=== PATIENT | female | born 1960 | race Caucasian/White ===

== ENCOUNTER → 2016-11-10 | Outpatient (CLI) | payer MEDICARE, OTHER ==
[~2016-11-10] MED LIST: ALDACTAZIDE 251 TAB PO; AUGMENTIN 875875 MG PO; BP MED; CLARITIN10 MG PO; FLONASE 0.05% 121 EA NAS; FLONASE0.05 MG/AC NS; NEXIUM40 MG PO; OPANA ER20 MG PO; OXYCONTIN40 M1 PO; PAROXETINE HCL40 MG PO; PERCOCET 650 MG1 TA1 PO; PRAVASTATIN SOD20 MG PO; PREDNICOT20 MG PO; ROBAXIN750 MG PO; ROBITUSSIN AC 110 ML PO; VICODIN ES 7501 TAB PO; XANAX1 MG PO; ZITHROMAX Z PA250 MG PO; ZOCOR40 MG PO
[2016-11-10 12:19] LABS: HEMOGLOBIN A1c 5.9 % (4.8-5.6)
[2016-11-10 12:32] LABS: ALKALINE PHOSPHATASE 125 U/L (45-117); BILIRUBIN, DIRECT < 0.1 mg/dL (0.0-0.2); BILIRUBIN, TOTAL 0.5 mg/dl (0.2-1.0); BUN 6 mg/dl (7-24); CARBON DIOXIDE 27 mmol/L (21-32); CHLORIDE 103 mmol/L (98-107); CHOLESTEROL 250 mg/dL (<200); EST GLOM FILT AFRICAN AMERICAN > 60 ml/min; FREE T4 0.94 ng/dl (0.76-1.46); GLUCOSE 107 mg/dL (65-99); HDL CHOLESTEROL 88 mg/dl (40-60); LDL CHOLESTEROL 120 mg/dL (9-159); SGOT/AST 19 IU/L (3-35); SGPT/ALT 26 U/L (12-78); SODIUM 139 mmol/L (136-145); TOTAL PROTEIN 7.8 gm/dL (6.4-8.2); TRIGLYCERIDES 209 mg/dl (<150); VLDL CHOLESTEROL 42 mg/dL (6-40)
== END | disposition home or self-care (01) ==
LOC: LAB 11:10
PROVIDERS: Internal Medicine
DX: E78.4 Other hyperlipidemia (principal); B37.2 Candidiasis of skin and nail; I10 Essential (primary) hypertension; R73.03 Prediabetes; L98.9 Disorder of the skin and subcutaneous tissue, unspecified; Z79.1 Long term (current) use of non-steroidal anti-inflammatories (NSAID); Z79.899 Other long term (current) drug therapy

== ENCOUNTER 2016-12-12 19:05 | Emergency (ER) | payer MEDICARE, OTHER ==
[~2016-12-12] VITALS: Wt 72.6 kg
[2016-12-12 19:12] VITALS: BP 149/67
[2016-12-12] MEDS ORDERED: PREDNISONE10 MG PO (19:48)
== END 2016-12-12 19:52 | disposition home or self-care (01) ==
LOC: ED 19:05
DX: M72.2 Plantar fascial fibromatosis (principal); R03.0 Elevated blood-pressure reading, without diagnosis of hypertension

== ENCOUNTER → 2017-10-14 | Outpatient (CLI) | payer MEDICARE, OTHER ==
[~2017-10-14] MED LIST changes: +PREDNISONE10 MG PO
== END | disposition home or self-care (01) ==
LOC: MRI 12:44
DX: M47.892 Other spondylosis, cervical region (principal); M47.897 Other spondylosis, lumbosacral region; M51.27 Other intervertebral disc displacement, lumbosacral region; M77.8 Other enthesopathies, not elsewhere classified; M48.02 Spinal stenosis, cervical region; M48.03 Spinal stenosis, cervicothoracic region; Z85.038 Personal history of other malignant neoplasm of large intestine

== ENCOUNTER → 2018-04-04 | Outpatient (CLI) | payer MEDICARE, OTHER ==
[2018-04-04 09:53] LABS: HEMATOCRIT 42.4 % (37.0-47.0); HEMOGLOBIN 13.7 g/dl (12.0-16.0); MEAN CELL VOLUME 89.8 fl (81.0-99.0); MEAN CORPUSCULAR HGB CONC 32.3 g/dl (33.0-37.0); MEAN PLATELET VOLUME 9.4 fl (9.6-12.3); RED BLOOD COUNT 4.72 10*6/uL (4.10-5.10); RED CELL DISTRI WIDTH 12.7 % (0-14.5); WHITE BLOOD COUNT 4.7 10*3/uL (4.8-10.8)
[2018-04-04 10:11] LABS: ALBUMIN 3.9 gm/dl (3.1-4.5); ALKALINE PHOSPHATASE 97 U/L (45-117); BUN 7 mg/dl (7-24); CHLORIDE 100 mmol/L (98-107); CHOLESTEROL 271 mg/dL (<200); CREATININE 0.78 mg/dL (0.55-1.02); HDL CHOLESTEROL 66 mg/dl (40-60); LDL CHOLESTEROL 152 mg/dL (9-159); POTASSIUM 4.8 mmol/L (3.5-5.1); SGOT/AST 23 IU/L (3-35); SGPT/ALT 25 U/L (12-78); SODIUM 134 mmol/L (136-145); TOTAL PROTEIN 7.4 gm/dL (6.4-8.2); TRIGLYCERIDES 267 mg/dl (<150); VLDL CHOLESTEROL 53 mg/dL (6-40)
== END | disposition home or self-care (01) ==
LOC: LAB 09:03
PROVIDERS: Registered Nurse Flight
DX: I10 Essential (primary) hypertension (principal); E78.00 Pure hypercholesterolemia, unspecified; E55.9 Vitamin D deficiency, unspecified; R73.01 Impaired fasting glucose

== ENCOUNTER → 2018-08-21 | Outpatient (CLI) | payer MEDICARE, OTHER ==
[2018-08-21 12:36] LABS: ALBUMIN 3.5 gm/dl (3.1-4.5); ALKALINE PHOSPHATASE 97 U/L (45-117); BUN 8 mg/dl (7-24); CHLORIDE 104 mmol/L (98-107); CHOLESTEROL 280 mg/dL (<200); CREATININE 0.83 mg/dL (0.55-1.02); HDL CHOLESTEROL 74 mg/dl (40-60); LDL CHOLESTEROL 145 mg/dL (9-159); POTASSIUM 4.3 mmol/L (3.5-5.1); SGOT/AST 13 IU/L (3-35); SGPT/ALT 21 U/L (12-78); SODIUM 139 mmol/L (136-145); TOTAL PROTEIN 7.1 gm/dL (6.4-8.2); TRIGLYCERIDES 304 mg/dl (<150); VLDL CHOLESTEROL 61 mg/dL (6-40)
== END | disposition home or self-care (01) ==
LOC: LAB 11:26
PROVIDERS: Registered Nurse Flight
DX: E78.00 Pure hypercholesterolemia, unspecified (principal); E55.9 Vitamin D deficiency, unspecified

== ENCOUNTER 2019-03-25 13:56 | Emergency (ER) | payer OTHER, MEDICARE ==
[~2019-03-25] VITALS: Wt 68.9 kg
[2019-03-25 13:57] VITALS: BP 136/90
== END 2019-03-25 15:43 | disposition home or self-care (01) ==
LOC: ED 13:56
DX: M79.602 Pain in left arm (principal); M79.89 Other specified soft tissue disorders; M54.2 Cervicalgia; E78.00 Pure hypercholesterolemia, unspecified; G89.29 Other chronic pain; I10 Essential (primary) hypertension; M81.0 Age-related osteoporosis without current pathological fracture; Z79.899 Other long term (current) drug therapy

== ENCOUNTER → 2019-04-20 | Outpatient (CLI) | payer OTHER, MEDICARE | END | disposition home or self-care (01) | LOC: RAD 09:37 | DX: J44.9 Chronic obstructive pulmonary disease, unspecified (principal) ==

== ENCOUNTER → 2019-07-20 | Outpatient (CLI) | payer OTHER ==
[2019-07-20 09:53] LABS: BASO # 0.1 10*3/uL (0.0-0.1); BASO % 1.3 % (0.0-1.0); EOS # 0.1 10*3/uL (0.0-0.4); EOS % 1.5 % (1.0-4.0); HEMATOCRIT 44.3 % (37.0-47.0); HEMOGLOBIN 14.1 g/dl (12.0-16.0); LYMPH # 1.2 10*3/uL (1.3-4.4); MEAN CELL VOLUME 87.9 fl (81.0-99.0); MEAN CORPUSCULAR HGB CONC 31.8 g/dl (33.0-37.0); MEAN PLATELET VOLUME 10.1 fl (9.6-12.3); MONO # 0.3 10*3/uL (0.1-1.0); MONO % 4.9 % (3.0-9.0); NEUT # 3.7 10*3/uL (2.3-7.9); NEUT % 68.7 % (47.0-73.0); PLATELET COUNT AUTOMATED 395 10*3/uL (130-400); RED BLOOD COUNT 5.04 10*6/uL (4.10-5.10); RED CELL DISTRI WIDTH 13.8 % (0-14.5); WHITE BLOOD COUNT 5.3 10*3/uL (4.8-10.8)
[2019-07-20 10:11] LABS: BILIRUBIN NEGATIVE (NEGATIVE); BLOOD TRACE-INTACT (NEGATIVE); CLARITY SL CLOUDY (CLEAR); COLOR YELLOW (YELLOW); GLUCOSE NEGATIVE (NEGATIVE); KETONE NEGATIVE (NEGATIVE); LEUKO ESTERASE NEGATIVE (NEGATIVE); NITRITE NEGATIVE (NEGATIVE); UROBILINOGEN 0.2 E.U./dl (0.2-1.0)
[2019-07-20 10:30] LABS: CHLORIDE 110 mmol/L (98-107); POTASSIUM 4.4 mmol/L (3.5-5.1); SODIUM 143 mmol/L (136-145)
[2019-07-20 10:38] LABS: ALBUMIN 3.8 gm/dl (3.1-4.5); ALKALINE PHOSPHATASE 77 U/L (45-117); BACTERIA TRACE; BUN 9 mg/dl (7-24); CHOLESTEROL 189 mg/dL (<200); CREATININE 1.09 mg/dL (0.55-1.02); HDL CHOLESTEROL 122 mg/dl (40-60); LDL CHOLESTEROL 53 mg/dL (9-159); MUCOUS TRACE; SGOT/AST 10 IU/L (3-35); SGPT/ALT 21 U/L (12-78); TOTAL PROTEIN 7.1 gm/dL (6.4-8.2); TRIGLYCERIDES 71 mg/dl (<150); VLDL CHOLESTEROL 14 mg/dL (6-40)
== END | disposition home or self-care (01) ==
LOC: LAB 09:17
PROVIDERS: Registered Nurse Flight
DX: R73.01 Impaired fasting glucose (principal); E78.00 Pure hypercholesterolemia, unspecified; R10.31 Right lower quadrant pain

== ENCOUNTER → 2019-08-14 | Outpatient (CLI) | payer OTHER ==
[2019-08-14 08:42] LABS: CREATININE 1.03 mg/dL (0.55-1.02)
== END | disposition home or self-care (01) ==
LOC: LAB 07:37 → CT 08:00
PROVIDERS: Registered Nurse Flight
DX: R10.13 Epigastric pain (principal); K44.9 Diaphragmatic hernia without obstruction or gangrene; N28.1 Cyst of kidney, acquired

== ENCOUNTER → 2020-01-23 | Outpatient (CLI) | payer OTHER | END | disposition home or self-care (01) | LOC: RAD 16:02 | PROVIDERS: ATTEND Registered Nurse Flight | DX: M25.512 Pain in left shoulder (principal) ==

== ENCOUNTER → 2020-02-20 | Outpatient (CLI) | payer OTHER ==
[2020-02-20 10:11] LABS: BASO # 0.1 10*3/uL (0.0-0.1); BASO % 1.2 % (0.0-1.0); EOS # 0.1 10*3/uL (0.0-0.4); EOS % 2.6 % (1.0-4.0); HEMATOCRIT 42.6 % (37.0-47.0); LYMPH # 1.2 10*3/uL (1.3-4.4); MEAN CELL VOLUME 89.1 fl (81.0-99.0); MEAN CORPUSCULAR HGB 28.2 pg (27.0-31.0); MEAN CORPUSCULAR HGB CONC 31.7 g/dl (33.0-37.0); MEAN PLATELET VOLUME 9.8 fl (9.6-12.3); MONO # 0.3 10*3/uL (0.1-1.0); MONO % 5.1 % (3.0-9.0); NEUT # 3.3 10*3/uL (2.3-7.9); NEUT % 66.7 % (47.0-73.0); PLATELET COUNT AUTOMATED 349 10*3/uL (130-400); RED BLOOD COUNT 4.78 10*6/uL (4.10-5.10); RED CELL DISTRI WIDTH 13.8 % (0-14.5); WHITE BLOOD COUNT 4.9 10*3/uL (4.8-10.8)
[2020-02-20 10:41] LABS: ALBUMIN 3.6 gm/dl (3.1-4.5); ALKALINE PHOSPHATASE 84 U/L (45-117); BUN 8 mg/dl (7-24); CHLORIDE 109 mmol/L (98-107); CHOLESTEROL 211 mg/dL (<200); HDL CHOLESTEROL 123 mg/dl (40-60); LDL CHOLESTEROL 74 mg/dL (9-159); POTASSIUM 4.2 mmol/L (3.5-5.1); SGOT/AST 18 IU/L (3-35); SGPT/ALT 29 U/L (12-78); SODIUM 141 mmol/L (136-145); TRIGLYCERIDES 69 mg/dl (<150); VLDL CHOLESTEROL 14 mg/dL (6-40)
[2020-02-21 17:06] LABS: BARBITURATE, URINE Negative ng/mL (Cutoff=200); CANNABINOID, URINE Negative ng/mL (Cutoff=20); CREATININE, UR 66.5 mg/dL (20.0-300.0); PH URINE 5.5 (4.5-8.9)
[2020-02-23 20:10] LABS: ALPRAZOLAM CONFIRM 580 ng/mL (Cutoff=100); FLURAZEPAM Negative (Cutoff=100)
== END | disposition home or self-care (01) ==
LOC: LAB 09:40
PROVIDERS: ATTEND Internal Medicine
DX: E78.5 Hyperlipidemia, unspecified (principal); M54.9 Dorsalgia, unspecified; F19.20 Other psychoactive substance dependence, uncomplicated

== ENCOUNTER → 2020-07-04 | Outpatient (CLI) | payer OTHER ==
[2020-07-04 11:22] LABS: BASO # 0.1 10*3/uL (0.0-0.1); EOS # 0.1 10*3/uL (0.0-0.4); EOS % 0.7 % (1.0-4.0); LYMPH # 1.7 10*3/uL (1.3-4.4); MEAN CELL VOLUME 84.3 fl (81.0-99.0); MEAN CORPUSCULAR HGB 27.3 pg (27.0-31.0); MEAN CORPUSCULAR HGB CONC 32.3 g/dl (33.0-37.0); MONO # 0.6 10*3/uL (0.1-1.0); MONO % 8.3 % (3.0-9.0); NEUT # 4.4 10*3/uL (2.3-7.9); NEUT % 64.7 % (47.0-73.0); PLATELET COUNT AUTOMATED 382 10*3/uL (130-400); RED CELL DISTRI WIDTH 12.9 % (0-14.5); WHITE BLOOD COUNT 6.8 10*3/uL (4.8-10.8)
[2020-07-04 11:47] LABS: ALBUMIN 3.8 gm/dl (3.1-4.5); CREATININE 1.48 mg/dL (0.55-1.02); POTASSIUM 3.8 mmol/L (3.5-5.1); TOTAL PROTEIN 7.3 gm/dL (6.4-8.2)
[2020-07-04 11:55] LABS: CEA 0.7 ng/mL; THYROID STIM HORMONE (HS) 0.721 uIU/ml (0.358-4.75)
== END | disposition home or self-care (01) ==
LOC: LAB 10:34
PROVIDERS: ATTEND Internal Medicine
DX: C18.9 Malignant neoplasm of colon, unspecified (principal); I10 Essential (primary) hypertension; E78.5 Hyperlipidemia, unspecified

== ENCOUNTER 2020-10-01 10:30 | Emergency (ER) | payer MEDICARE, OTHER ==
[~2020-10-01] VITALS: Ht 160 cm; Wt 68.0 kg
[2020-10-01 11:27] LABS: BASO # 0.1 10*3/uL (0.0-0.1); BASO % 1.4 % (0.0-1.0); EOS # 0.1 10*3/uL (0.0-0.4); EOS % 1.6 % (1.0-4.0); LYMPH # 1.1 10*3/uL (1.3-4.4); LYMPH % 26.2 % (27.0-41.0); MEAN CELL VOLUME 81.1 fl (81.0-99.0); MEAN CORPUSCULAR HGB 27.3 pg (27.0-31.0); MEAN CORPUSCULAR HGB CONC 33.6 g/dl (33.0-37.0); MEAN PLATELET VOLUME 9.1 fl (9.6-12.3); MONO # 0.4 10*3/uL (0.1-1.0); MONO % 8.9 % (3.0-9.0); NEUT # 2.6 10*3/uL (2.3-7.9); NEUT % 61.7 % (47.0-73.0); PLATELET COUNT AUTOMATED 397 10*3/uL (130-400); RED BLOOD COUNT 4.44 10*6/uL (4.10-5.10); RED CELL DISTRI WIDTH 13.4 % (0-14.5); WHITE BLOOD COUNT 4.3 10*3/uL (4.8-10.8)
[2020-10-01 11:41] LABS: ALBUMIN 3.7 gm/dl (3.1-4.5); ALKALINE PHOSPHATASE 70 U/L (45-117); BUN 20 mg/dl (7-24); CHLORIDE 99 mmol/L (98-107); CREATININE 1.43 mg/dL (0.55-1.02); LIPASE 76 U/L (73-393); POTASSIUM 4.2 mmol/L (3.5-5.1); SGOT/AST 11 IU/L (3-35); SGPT/ALT 16 U/L (12-78); SODIUM 132 mmol/L (136-145)
[2020-10-01 11:42] LABS: TROPONIN I < 0.015 ng/ml (<0.045)
[2020-10-01 11:54] LABS: BILIRUBIN Negative (Negative); BLOOD Negative (Negative); CLARITY Clear (Clear); COLOR Yellow (Yellow); GLUCOSE Negative (Negative); KETONE Negative (Negative); LEUKO ESTERASE Trace (Negative); NITRITE Negative (Negative); PH 6.5 (4.5-8.0); SPECIFIC GRAVITY <= 1.005 (1.001-1.030); UROBILINOGEN 0.2 E.U./dl (0.0-1.0)
[2020-10-01 12:00] LABS: BACTERIA TRACE; RBC 0-2 rbc/hpf (0-2)
[2020-10-01 14:48] VITALS: BP 121/74
== END 2020-10-01 15:47 | disposition left against medical advice (07) ==
LOC: ED 10:30
PROVIDERS: Emergency Medicine
DX: R06.00 Dyspnea, unspecified (principal); R42 Dizziness and giddiness; Z79.899 Other long term (current) drug therapy

== ENCOUNTER 2020-10-31 10:06 | Emergency (ER) | payer MEDICARE, OTHER ==
[~2020-10-31] VITALS: Wt 68.0 kg
[2020-10-31 14:01] VITALS: BP 136/50
== END 2020-10-31 18:35 | disposition home or self-care (01) ==
LOC: ED 10:06
DX: S92.341A Displaced fracture of fourth metatarsal bone, right foot, initial encounter for closed fracture (principal); S92.351A Displaced fracture of fifth metatarsal bone, right foot, initial encounter for closed fracture; X58.XXXA Exposure to other specified factors, initial encounter; Y93.89 Activity, other specified; Y92.89 Other specified places as the place of occurrence of the external cause; Y99.8 Other external cause status

== ENCOUNTER 2021-04-22 18:43 | Emergency (ER) | payer OTHER ==
[~2021-04-22] VITALS: Ht 157.4 cm; Wt 61.2 kg
[2021-04-22 18:59] VITALS: BP 133/56
== END 2021-04-22 22:45 | disposition left against medical advice (07) ==
LOC: ED 18:43
DX: R11.10 Vomiting, unspecified (principal); Z53.21 Procedure and treatment not carried out due to patient leaving prior to being seen by health care provider

== ENCOUNTER 2021-10-05 23:30 | Emergency (ER) | payer OTHER ==
[2021-10-05 23:48] VITALS: BP 113/49
== END 2021-10-06 01:49 | disposition home or self-care (01) ==
LOC: ED 23:30
DX: K22.2 Esophageal obstruction (principal); Z79.899 Other long term (current) drug therapy; Z98.890 Other specified postprocedural states; Z90.89 Acquired absence of other organs

== ENCOUNTER → 2021-10-21 | Outpatient (CLI) | payer OTHER | END | disposition home or self-care (01) | LOC: RAD 10:33 | PROVIDERS: ATTEND Pain Medicine Interventional Pain Medicine | DX: M50.10 Cervical disc disorder with radiculopathy, unspecified cervical region (principal); M48.02 Spinal stenosis, cervical region ==

== ENCOUNTER → 2022-05-13 | Outpatient (CLI) | payer OTHER | END | disposition home or self-care (01) | LOC: MRI 03-06 10:00 | PROVIDERS: ATTEND Pain Medicine Interventional Pain Medicine | DX: M51.16 Intervertebral disc disorders with radiculopathy, lumbar region (principal); M51.26 Other intervertebral disc displacement, lumbar region; M48.061 Spinal stenosis, lumbar region without neurogenic claudication ==

== ENCOUNTER → 2022-08-15 | Outpatient (CLI) | payer OTHER | END | disposition home or self-care (01) | LOC: US 00:10 | PROVIDERS: ATTEND Internal Medicine Nephrology | DX: N18.32 Chronic kidney disease, stage 3b (principal); N32.89 Other specified disorders of bladder ==

== ENCOUNTER → 2023-03-29 | Outpatient (CLI) | payer OTHER ==
[2023-03-29 10:11] LABS: BASO % 0.4 % (0.0-1.0); EOS # 0.4 10*3/uL (0.0-0.4); EOS % 4.6 % (1.0-4.0); HEMATOCRIT 40.7 % (37.0-47.0); LYMPH # 1.2 10*3/uL (1.3-4.4); LYMPH % 12.8 % (27.0-41.0); MEAN CORPUSCULAR HGB 28.6 pg (27.0-31.0); MEAN CORPUSCULAR HGB CONC 32.9 g/dl (33.0-37.0); MEAN PLATELET VOLUME 8.9 fl (9.6-12.3); MONO # 0.8 10*3/uL (0.1-1.0); MONO % 8.4 % (3.0-9.0); PLATELET COUNT AUTOMATED 452 10*3/uL (130-400); RED BLOOD COUNT 4.68 10*6/uL (4.10-5.10); RED CELL DISTRI WIDTH 13.7 % (0-14.5); WHITE BLOOD COUNT 9.6 10*3/uL (4.8-10.8)
[2023-03-29 10:12] LABS: BILIRUBIN Negative (Negative); BLOOD Negative (Negative); CLARITY Clear (Clear); COLOR Yellow (Yellow); GLUCOSE Negative (Negative); KETONE Negative (Negative); LEUKO ESTERASE 2+ (Negative); NITRITE Negative (Negative); UROBILINOGEN 0.2 E.U./dl (0.0-1.0)
[2023-03-29 10:39] LABS: TOTAL PROTEIN 6.6 gm/dL (6.0-8.0)
== END | disposition home or self-care (01) ==
LOC: LAB 09:13
PROVIDERS: Nurse Practitioner Family; ATTEND Psychiatry & Neurology Neurology
DX: E78.5 Hyperlipidemia, unspecified (principal); R53.83 Other fatigue; R42 Dizziness and giddiness; I10 Essential (primary) hypertension; L50.9 Urticaria, unspecified; L30.9 Dermatitis, unspecified; Z79.899 Other long term (current) drug therapy

== ENCOUNTER → 2023-05-06 | Outpatient (CLI) | payer OTHER ==
[2023-05-06 12:08] LABS: BASO # 0.1 10*3/uL (0.0-0.1); BASO % 1.1 % (0.0-1.0); EOS # 0.5 10*3/uL (0.0-0.4); EOS % 5.8 % (1.0-4.0); HEMATOCRIT 38.2 % (37.0-47.0); LYMPH # 0.9 10*3/uL (1.3-4.4); LYMPH % 11.1 % (27.0-41.0); MEAN CELL VOLUME 85.8 fl (81.0-99.0); MEAN CORPUSCULAR HGB 28.8 pg (27.0-31.0); MEAN CORPUSCULAR HGB CONC 33.5 g/dl (33.0-37.0); MEAN PLATELET VOLUME 9.1 fl (9.6-12.3); MONO # 0.6 10*3/uL (0.1-1.0); MONO % 7.3 % (3.0-9.0); NEUT % 74.6 % (47.0-73.0); PLATELET COUNT AUTOMATED 419 10*3/uL (130-400); RED BLOOD COUNT 4.45 10*6/uL (4.10-5.10); RED CELL DISTRI WIDTH 13.2 % (0-14.5); WHITE BLOOD COUNT 8.1 10*3/uL (4.8-10.8)
[2023-05-06 12:13] LABS: BILIRUBIN Negative (Negative); BLOOD 1+ (Negative); CLARITY Clear (Clear); COLOR Yellow (Yellow); GLUCOSE Negative (Negative); KETONE Negative (Negative); LEUKO ESTERASE 2+ (Negative); NITRITE Negative (Negative); SPECIFIC GRAVITY <= 1.005 (1.001-1.030); UROBILINOGEN 0.2 E.U./dl (0.0-1.0)
[2023-05-06 12:16] LABS: URINE CREATININE RANDOM 20.02 mg/dL
[2023-05-06 12:31] LABS: BACTERIA 1+; WBC 16-20 wbc/hpf (0-5)
[2023-05-06 12:33] LABS: TOTAL PROTEIN 7.1 gm/dL (6.0-8.0)
[2023-05-06 12:36] LABS: VITAMIN D, 25-HYDROXY 28.3 ng/mL (30-100)
== END | disposition home or self-care (01) ==
LOC: US 10:00 → LAB 10:25
PROVIDERS: Nurse Practitioner Family; ATTEND Internal Medicine Nephrology
DX: R42 Dizziness and giddiness (principal); I10 Essential (primary) hypertension; E78.5 Hyperlipidemia, unspecified; F41.1 Generalized anxiety disorder; R79.89 Other specified abnormal findings of blood chemistry; E87.1 Hypo-osmolality and hyponatremia; N18.30 Chronic kidney disease, stage 3 unspecified; E83.9 Disorder of mineral metabolism, unspecified

== ENCOUNTER → 2023-09-21 | Outpatient (CLI) | payer OTHER ==
[2023-09-21 11:11] LABS: BASO # 0.1 10*3/uL (0.0-0.1); BASO % 1.2 % (0.0-1.0); EOS # 0.3 10*3/uL (0.0-0.4); EOS % 3.3 % (1.0-4.0); HEMATOCRIT 41.8 % (37.0-47.0); LYMPH # 1.2 10*3/uL (1.3-4.4); LYMPH % 14.4 % (27.0-41.0); MEAN CELL VOLUME 87.6 fl (81.0-99.0); MEAN CORPUSCULAR HGB 27.7 pg (27.0-31.0); MEAN CORPUSCULAR HGB CONC 31.6 g/dl (33.0-37.0); MEAN PLATELET VOLUME 9.2 fl (9.6-12.3); MONO # 0.6 10*3/uL (0.1-1.0); MONO % 7.4 % (3.0-9.0); NEUT # 5.9 10*3/uL (2.3-7.9); NEUT % 73.3 % (47.0-73.0); PLATELET COUNT AUTOMATED 398 10*3/uL (130-400); RED BLOOD COUNT 4.77 10*6/uL (4.10-5.10); RED CELL DISTRI WIDTH 13.2 % (0-14.5); WHITE BLOOD COUNT 8.1 10*3/uL (4.8-10.8)
[2023-09-21 11:30] LABS: POTASSIUM 4.1 mmol/L (3.4-5.1); TOTAL PROTEIN 7.4 gm/dL (6.0-8.0)
== END | disposition home or self-care (01) ==
LOC: LAB 10:50
PROVIDERS: ATTEND Nurse Practitioner Family
DX: R06.02 Shortness of breath (principal); I10 Essential (primary) hypertension; E78.5 Hyperlipidemia, unspecified; R79.89 Other specified abnormal findings of blood chemistry; E55.9 Vitamin D deficiency, unspecified

== ENCOUNTER → 2023-09-27 | Outpatient (CLI) | payer OTHER | LOC: LAB 15:53 | PROVIDERS: ATTEND Nurse Practitioner Family | DX: J40 Bronchitis, not specified as acute or chronic (principal); R05.8 Other specified cough; L25.9 Unspecified contact dermatitis, unspecified cause ==

== ENCOUNTER → 2023-11-10 | Outpatient (CLI) | payer OTHER ==
[2023-11-10 10:11] LABS: BUN 16 mg/dl (9-23); CHLORIDE 103 mmol/L (98-107); POTASSIUM 4.2 mmol/L (3.4-5.1)
== END | disposition home or self-care (01) ==
LOC: LAB 09:37
PROVIDERS: ATTEND Nurse Practitioner Family
DX: I10 Essential (primary) hypertension (principal)

== ENCOUNTER → 2024-02-14 | Outpatient (CLI) | payer OTHER ==
[~2024-02-14] MED LIST changes: +BUSPAR5 MG PO; +CELEBREX100 MG PO; +GADOTERATE MEGLUMINE 7.5 MMOL/15 ML VIAL IV ONE; +GOOD NEIGHBOR M25 M1 PO; +LISINOPRIL10 M1 PO; +METHOCARBAMOL500 M1 PO; +ROPINIROLE HYDRO1 MG PO; +VENT7GM INH
== END | disposition home or self-care (01) ==
LOC: MRI 02:16 → LAB 02:16 → MRI 10:00
PROVIDERS: ATTEND Nurse Practitioner Family
DX: R42 Dizziness and giddiness (principal); I10 Essential (primary) hypertension; H53.9 Unspecified visual disturbance

== ENCOUNTER 2025-02-12 09:05 | Emergency (ER) | payer OTHER ==
[~2025-02-12] VITALS: Ht 157.4 cm; Wt 63.5 kg
[~2025-02-12 09:05] MED LIST changes: -GADOTERATE MEGLUMINE 7.5 MMOL/15 ML VIAL IV ONE
[2025-02-12 09:46] VITALS: BP 120/76
== END 2025-02-12 11:06 | disposition home or self-care (01) ==
LOC: ED 09:05
DX: S93.401A Sprain of unspecified ligament of right ankle, initial encounter (principal); F41.9 Anxiety disorder, unspecified; F32.A Depression, unspecified; I10 Essential (primary) hypertension; E78.00 Pure hypercholesterolemia, unspecified; Z88.8 Allergy status to other drugs, medicaments and biological substances; Z98.890 Other specified postprocedural states; X50.1XXA Overexertion from prolonged static or awkward postures, initial encounter; Y93.89 Activity, other specified; Y92.89 Other specified places as the place of occurrence of the external cause; Y99.8 Other external cause status

== ENCOUNTER → 2025-02-20 | Outpatient (CLI) | payer OTHER | END | disposition home or self-care (01) | LOC: CT 08:37 | PROVIDERS: ATTEND Nurse Practitioner Family | DX: S46.122A Laceration of muscle, fascia and tendon of long head of biceps, left arm, initial encounter (principal); S46.292A Other injury of muscle, fascia and tendon of other parts of biceps, left arm, initial encounter; M25.48 Effusion, other site; R42 Dizziness and giddiness; R51.9 Headache, unspecified; G31.9 Degenerative disease of nervous system, unspecified; X58.XXXA Exposure to other specified factors, initial encounter; Y93.89 Activity, other specified; Y92.89 Other specified places as the place of occurrence of the external cause; Y99.8 Other external cause status ==

== ENCOUNTER → 2025-04-12 | Outpatient (CLI) | payer OTHER ==
[2025-04-12 17:26] LABS: BASO # 0.1 10*3/uL (0.0-0.1); BASO % 1.5 % (0.0-1.0); EOS # 0.2 10*3/uL (0.0-0.4); EOS % 2.7 % (1.0-4.0); MEAN CELL VOLUME 88.9 fl (81.0-99.0); MEAN CORPUSCULAR HGB 28.5 pg (27.0-31.0); MEAN PLATELET VOLUME 10.4 fl (9.6-12.3); MONO # 0.5 10*3/uL (0.1-1.0); MONO % 6.2 % (3.0-9.0); NEUT # 4.9 10*3/uL (2.3-7.9); NEUT % 65.9 % (47.0-73.0); NUCLEATED RED BLOOD CELL 0.0 % (0.0-0.0); NUCLEATED RED BLOOD CELL 0.0 10*3/uL (0.0-0.0); PLATELET COUNT AUTOMATED 418 10*3/uL (130-400); RED CELL DISTRI WIDTH 13.2 % (0-14.5)
[2025-04-12 17:48] LABS: BUN 16.0 mg/dl (9-23); LDL CHOLESTEROL 67.0 mg/dL (9-159); SGPT/ALT 10.0 U/L (5-49)
[2025-04-12 17:49] LABS: VITAMIN D, 25-HYDROXY 29.3 ng/mL (30-100)
== END | disposition home or self-care (01) ==
LOC: ZRHCWE 10:39
PROVIDERS: ATTEND Nurse Practitioner Family
DX: I10 Essential (primary) hypertension (principal); F41.1 Generalized anxiety disorder; E78.5 Hyperlipidemia, unspecified; J45.20 Mild intermittent asthma, uncomplicated; G25.81 Restless legs syndrome; K21.9 Gastro-esophageal reflux disease without esophagitis; E55.9 Vitamin D deficiency, unspecified; Z00.00 Encounter for general adult medical examination without abnormal findings

== ENCOUNTER → 2025-04-16 | Outpatient (CLI) | payer OTHER | END | disposition home or self-care (01) | LOC: MRI 13:57 | PROVIDERS: ATTEND Orthopaedic Surgery | DX: S46.111A Strain of muscle, fascia and tendon of long head of biceps, right arm, initial encounter (principal); S46.112A Strain of muscle, fascia and tendon of long head of biceps, left arm, initial encounter; M75.51 Bursitis of right shoulder; M75.81 Other shoulder lesions, right shoulder; M25.811 Other specified joint disorders, right shoulder; M67.813 Other specified disorders of tendon, right shoulder; M25.411 Effusion, right shoulder; X58.XXXA Exposure to other specified factors, initial encounter; Y93.89 Activity, other specified; Y92.89 Other specified places as the place of occurrence of the external cause; Y99.8 Other external cause status ==

== ENCOUNTER → 2025-04-23 | Outpatient (CLI) | payer OTHER | END | disposition home or self-care (01) | LOC: RAD 14:55 | PROVIDERS: ATTEND Orthopaedic Surgery | DX: M75.101 Unspecified rotator cuff tear or rupture of right shoulder, not specified as traumatic (principal); M25.511 Pain in right shoulder ==